=== PATIENT | female | born 1950 | race Caucasian/White ===

== ENCOUNTER → 2016-07-26 | Outpatient (CLI) | payer BC ==
[~2016-07-26] MED LIST: ATIVAN1 MG PO; CARAFATE1 G1 PO; EFFEXOR XR75 M2 PO; EFFEXOR50 MG PO; PRILOSEC40 MG PO; PROZAC20 MG PO; PROZAC40 MG PO; [UNRECOGNIZED DRUG - CODE] IM
== END | disposition home or self-care (01) ==
LOC: CARD 08:25
DX: R06.09 Other forms of dyspnea (principal)

== ENCOUNTER 2017-05-03 12:26 | Inpatient (IN) | payer MEDICARE, BC ==
[~2017-05-03] VITALS: Ht 170.2 cm; Wt 91.3 kg
[2017-05-03] VITALS (8 sets, daily range): BP systolic 101–157; BP diastolic 50–83
[2017-05-03 13:23] LABS: BASO # 0.1 10*3/uL (0.0-0.1); BASO % 0.7 % (0.0-1.0); EOS # 0.2 10*3/uL (0.0-0.4); EOS % 1.3 % (1.0-4.0); HEMATOCRIT 31.1 % (37.0-47.0); HEMOGLOBIN 9.5 g/dl (12.0-16.0); LYMPH # 3.4 10*3/uL (1.3-4.4); LYMPH % 29.4 % (27.0-41.0); MEAN CELL VOLUME 98.7 fl (81.0-99.0); MEAN CORPUSCULAR HGB 30.2 pg (27.0-31.0); MEAN CORPUSCULAR HGB CONC 30.5 g/dl (33.0-37.0); MEAN PLATELET VOLUME 9.9 fl (9.6-12.3); MONO % 8.5 % (3.0-9.0); NEUT # 6.9 10*3/uL (2.3-7.9); NEUT % 59.7 % (47.0-73.0); PLATELET COUNT AUTOMATED 275 10*3/uL (130-400); RED BLOOD COUNT 3.15 10*6/uL (4.10-5.10); RED CELL DISTRI WIDTH 15.1 % (0-14.5); WHITE BLOOD COUNT 11.6 10*3/uL (4.8-10.8)
[2017-05-03 13:38] LABS: ALBUMIN 3.4 gm/dl (3.1-4.5); ALKALINE PHOSPHATASE 165 U/L (45-117); BUN 15 mg/dl (7-24); CHLORIDE 107 mmol/L (98-107); CREATININE 0.95 mg/dL (0.55-1.02); LIPASE 226 U/L (73-393); POTASSIUM 3.8 mmol/L (3.5-5.1); SGOT/AST 37 IU/L (3-35); SGPT/ALT 28 U/L (12-78); SODIUM 139 mmol/L (136-145); TOTAL PROTEIN 7.1 gm/dL (6.4-8.2)
[2017-05-03 13:40] LABS: TROPONIN I < 0.015 ng/ml (<0.045)
[2017-05-03 13:49] LABS: ACT PARTIAL THROMBO TIME 27.7 SECONDS (20.8-31.5); INTERNATIONAL NORM RATIO 1.1 (2.0-3.5)
[2017-05-03 14:37] LABS: BILIRUBIN NEGATIVE (NEGATIVE); BLOOD NEGATIVE (NEGATIVE); CLARITY SL CLOUDY (CLEAR); COLOR YELLOW (YELLOW); GLUCOSE NEGATIVE (NEGATIVE); KETONE NEGATIVE (NEGATIVE); LEUKO ESTERASE 1+ (NEGATIVE); NITRITE NEGATIVE (NEGATIVE); PH 5.5 (5.0-9.0); UROBILINOGEN 0.2 E.U./dl (0.2-1.0)
[2017-05-03 14:59] LABS: BACTERIA 2+; EPITHELIAL CELLS 20-25
[2017-05-03 15:00] LABS: RBC 0-2 rbc/hpf (0-2); WBC 16-20 wbc/hpf (0-5)
[2017-05-03] MEDS ORDERED: ASPIRIN ADULT L81 M1 PO (16:01)
[2017-05-03] MEDS ORDERED: LIPITOR10 MG PO (16:02)
[2017-05-03] MEDS ORDERED: OMEPRAZOLE40 MG PO (16:02)
[2017-05-04] VITALS: BP 129/51
[2017-05-04 06:17] LABS: BASO # 0.1 10*3/uL (0.0-0.1); BASO % 0.8 % (0.0-1.0); EOS # 0.2 10*3/uL (0.0-0.4); EOS % 1.5 % (1.0-4.0); HEMATOCRIT 31.9 % (37.0-47.0); HEMOGLOBIN 9.9 g/dl (12.0-16.0); LYMPH # 3.2 10*3/uL (1.3-4.4); LYMPH % 27.6 % (27.0-41.0); MEAN CELL VOLUME 99.1 fl (81.0-99.0); MEAN CORPUSCULAR HGB 30.7 pg (27.0-31.0); MEAN PLATELET VOLUME 9.9 fl (9.6-12.3); MONO % 8.3 % (3.0-9.0); NEUT # 7.1 10*3/uL (2.3-7.9); NEUT % 61.3 % (47.0-73.0); PLATELET COUNT AUTOMATED 278 10*3/uL (130-400); RED BLOOD COUNT 3.22 10*6/uL (4.10-5.10); WHITE BLOOD COUNT 11.5 10*3/uL (4.8-10.8)
[2017-05-04 06:40] LABS: ALBUMIN 3.1 gm/dl (3.1-4.5); ALKALINE PHOSPHATASE 157 U/L (45-117); BUN 15 mg/dl (7-24); CHLORIDE 108 mmol/L (98-107); CHOLESTEROL 56 mg/dL (<200); CREATININE 0.97 mg/dL (0.55-1.02); FREE T4 0.98 ng/dl (0.76-1.46); HDL CHOLESTEROL 27 mg/dl (40-60); LDL CHOLESTEROL 14 mg/dL (9-159); PHOSPHOROUS 4.2 mg/dL (2.5-4.9); POTASSIUM 4.2 mmol/L (3.5-5.1); SGOT/AST 38 IU/L (3-35); SGPT/ALT 29 U/L (12-78); SODIUM 142 mmol/L (136-145); TRIGLYCERIDES 77 mg/dl (<150); VLDL CHOLESTEROL 15 mg/dL (6-40)
[2017-05-04 06:48] LABS: INTERNATIONAL NORM RATIO 1.1 (2.0-3.5)
[2017-05-04 07:29] LABS: VITAMIN D, 25-HYDROXY 20.7 ng/mL (30-100)
[2017-05-04 08:00] VITALS: BP 126/54
[2017-05-04 12:00] VITALS: BP 119/67
[2017-05-04 16:00] VITALS: BP 108/60
[2017-05-04] MEDS ORDERED: VITAMIN D31000 UNIT PO (16:58)
[2017-05-04] MEDS ORDERED: XARELTO20 M1 PO (17:17)
== END 2017-05-04 18:28 | disposition home or self-care (01) | DRG 205 ==
LOC: ED 12:26 → EDHOLD 15:11 → 4E 15:11
PROVIDERS: Emergency Medicine; Internal Medicine
DX: M94.0 Chondrocostal junction syndrome [Tietze] (principal); J18.9 Pneumonia, unspecified organism; E67.8 Other specified hyperalimentation; I48.91 Unspecified atrial fibrillation; E44.1 Mild protein-calorie malnutrition; J84.10 Pulmonary fibrosis, unspecified; K21.9 Gastro-esophageal reflux disease without esophagitis; F41.9 Anxiety disorder, unspecified; F32.9 Major depressive disorder, single episode, unspecified; R91.1 Solitary pulmonary nodule; D72.829 Elevated white blood cell count, unspecified; E55.9 Vitamin D deficiency, unspecified; K44.9 Diaphragmatic hernia without obstruction or gangrene; M51.34 Other intervertebral disc degeneration, thoracic region; I34.0 Nonrheumatic mitral (valve) insufficiency; D63.8 Anemia in other chronic diseases classified elsewhere; R74.0 Nonspecific elevation of levels of transaminase and lactic acid dehydrogenase [LDH]; Z82.49 Family history of ischemic heart disease and other diseases of the circulatory system; Z83.3 Family history of diabetes mellitus; Z80.7 Family history of other malignant neoplasms of lymphoid, hematopoietic and related tissues; Z80.0 Family history of malignant neoplasm of digestive organs; Z88.0 Allergy status to penicillin; Z91.041 Radiographic dye allergy status; Z79.899 Other long term (current) drug therapy; Z79.82 Long term (current) use of aspirin; Z90.49 Acquired absence of other specified parts of digestive tract; Z68.31 Body mass index [BMI] 31.0-31.9, adult; S22.000D Wedge compression fracture of unspecified thoracic vertebra, subsequent encounter for fracture with routine healing

== ENCOUNTER → 2017-05-11 | Outpatient (CLI) | payer MEDICARE, BC ==
[~2017-05-11] MED LIST changes: +ASPIRIN ADULT L81 M1 PO; +LIPITOR10 MG PO; +OMEPRAZOLE40 MG PO; +VITAMIN D31000 UNIT PO; +XARELTO20 M1 PO
--- NOTE | ~2017-05-11 | ST ---
[place], [place] EXERCISE STRESS TEST REPORT NAME: CHARISSA RILEY [facility] #: [id number] UNIT #: [id number] ROOM: DOCTOR: WEI STAFFORD MD BIRTHDATE: [birth year] DOS: 05/11/2017 LEXISCAN STRESS EKG. REFERRING PHYSICIAN: Dr. Moctezuma. INDICATION: Atrial fibrillation, shortness of breath, and chest pain. FINDINGS: The patient underwent a standard protocol Lexiscan stress EKG. The patient's baseline EKG was atrial fibrillation with a slow ventricular response with a heart rate of 46 beats per minute with blood pressure 118/60. The patient's peak heart rate was 77 with blood pressure 126/55. The patient had no acute changes of her ST segments. The patient had no arrhythmias beyond her baseline atrial fibrillation and no symptoms of chest pain or angina. SUMMARY OF FINDINGS: Unremarkable Lexiscan stress aside from her baseline atrial fibrillation. Please see separate report for perfusion scan imaging results. WEI STAFFORD MD CM:STRESS:EXERCISE STRESS TEST REPORT [id number] WEI STAFFORD MD
== END | disposition home or self-care (01) ==
LOC: CARD 03:08
DX: I48.91 Unspecified atrial fibrillation (principal); R06.02 Shortness of breath; R07.9 Chest pain, unspecified; R53.81 Other malaise

== ENCOUNTER 2017-08-23 08:02 | Emergency (ER) | payer MEDICARE, BC ==
[~2017-08-23] VITALS: Ht 170.1 cm; Wt 83.9 kg
--- NOTE | ~2017-08-23 | HM ---
[place], [place] HOLTER MONITOR REPORT NAME: CHARISSA RILEY [facility] #: [id number] UNIT #: [id number] ROOM: DOCTOR: LYNDSAY DE LUNA MD BIRTHDATE: [birth year] DOS: 08/23/2017 HOLTER REPORT INTERPRETATION: Underlying rhythm is atrial fibrillation with a controlled ventricular rate. Maximum heart rate 114, minimum heart rate 31, average heart rate is 54 beats per minute. There was one episode of ventricular triplets were noted. No significant pauses were noted. The patient's symptoms did not correlate with any significant EKG findings. Atrial fibrillation burden was 99.4%. Lyndsay De Luna MD CM:HOLTER:HOLTER MONITOR REPORT [id number] LYNDSAY DE LNUA MD
--- NOTE | ~2017-08-23 | EKG ---
[place], [place] ELECTROCARDIOGRAM REPORT NAME: CHARISSA RILEY UNIT #: [id number] ROOM: DOCTOR: ROSALIE HURLEY MD BIRTHDATE: [birth year] DOS: 08/23/2017 TIME: 0810 hours. FINDINGS: 1. Atrial fibrillation with a slow ventricular rate at 44 beats per minute. 2. An abnormal ECG. 3. No previous tracing is available for comparison. ROSALIE HURLEY MD CM:EKGRPT:ELECTROCARDIOGRAM REPORT [id number] ROSALIE HURLEY MD
[2017-08-23 08:21] LABS: HEMATOCRIT 34.6 % (37.0-47.0); HEMOGLOBIN 10.9 g/dl (12.0-16.0); MEAN CELL VOLUME 100.3 fl (81.0-99.0); MEAN CORPUSCULAR HGB 31.6 pg (27.0-31.0); MEAN CORPUSCULAR HGB CONC 31.5 g/dl (33.0-37.0); MEAN PLATELET VOLUME 10.3 fl (9.6-12.3); PLATELET COUNT AUTOMATED 343 10*3/uL (130-400); RED BLOOD COUNT 3.45 10*6/uL (4.10-5.10); RED CELL DISTRI WIDTH 14.4 % (0-14.5); WHITE BLOOD COUNT 16.2 10*3/uL (4.8-10.8)
[2017-08-23 08:36] LABS: BILIRUBIN NEGATIVE (NEGATIVE); BLOOD TRACE-LYSED (NEGATIVE); CLARITY CLEAR (CLEAR); COLOR STRAW (YELLOW); GLUCOSE NEGATIVE (NEGATIVE); KETONE NEGATIVE (NEGATIVE); LEUKO ESTERASE TRACE (NEGATIVE); NITRITE NEGATIVE (NEGATIVE); PH 5.5 (5.0-9.0); SPECIFIC GRAVITY <= 1.005 (1.005-1.030); UROBILINOGEN 0.2 E.U./dl (0.2-1.0)
[2017-08-23 08:43] LABS: BACTERIA TRACE; RBC 0-2 rbc/hpf (0-2)
[2017-08-23 08:46] LABS: TOTAL CELLS COUNTED 100 #CELLS
[2017-08-23 08:48] LABS: BURR CELLS FEW; PLATELET SUFFICIENCY NORMAL (NORMAL)
[2017-08-23 08:58] LABS: ALBUMIN 4.1 gm/dl (3.1-4.5); ALKALINE PHOSPHATASE 172 U/L (45-117); BUN 21 mg/dl (7-24); CHLORIDE 109 mmol/L (98-107); CREATININE 0.95 mg/dL (0.55-1.02); POTASSIUM 4.4 mmol/L (3.5-5.1); SGOT/AST 67 IU/L (3-35); SGPT/ALT 51 U/L (12-78); SODIUM 142 mmol/L (136-145); TOTAL PROTEIN 7.6 gm/dL (6.4-8.2)
[2017-08-23 09:00] LABS: TROPONIN I < 0.015 ng/ml (<0.045)
== END 2017-08-23 11:00 | disposition home or self-care (01) ==
LOC: ED 08:02
PROVIDERS: Emergency Medicine
DX: R00.1 Bradycardia, unspecified (principal); R11.0 Nausea; R20.0 Anesthesia of skin; R06.02 Shortness of breath; R53.1 Weakness; R07.89 Other chest pain; K21.9 Gastro-esophageal reflux disease without esophagitis; Z88.0 Allergy status to penicillin; Z79.899 Other long term (current) drug therapy

== ENCOUNTER → 2017-11-22 | Outpatient (CLI) | payer MEDICARE, BC ==
--- NOTE | ~2017-11-22 | CON ---
[place], [place] REPORT OF CONSULTATION [facility] [id number] UNIT #: [id number] ROOM: DOCTOR: HANNAH MURRAY MD BIRTHDATE: [birth year] DOS: 11/22/2017 HISTORY OF PRESENT ILLNESS: The patient came to our [facility] Cardiology office today ahead of schedule. She is a 66-year-old woman whom I first evaluated in July 2017 for a history of atrial fibrillation with slow ventricular response and sick sinus syndrome. She seemed stable when I saw her, but became more dyspneic and fatigued shortly thereafter and was seen in the Emergency Room on 08/30/2017 with a slow ventricular response to her atrial fibrillation. Dr. Prakash Willingham inserted a pacemaker 08/31/2017. Plans were that she should be anticoagulated and then undergo FELIPE-guided cardioversion. This occurred on 10/24/2017. Despite the fact that her echocardiography in the past had shown moderate mitral insufficiency, the FELIPE on 10/24/2017 did show severe left atrial enlargement and severe mitral insufficiency along with a low normal left ventricular ejection fraction. The patient was referred to the valve clinic. Dr. Sumeet Mendieta did a cardiac catheterization via a right radial approach 11/16/2017 and found no significant disease. The patient was referred to Dr. Shelton Quinn for consideration of mitral valve repair or replacement. The patient has that appointment next week, but she is feeling poorly. She states that she gets dyspneic with minor exertion and cannot climb stairs anymore. She has noticed that her weight is going up and that her ankles have been a little bit more swollen lately. Her medical history includes (you could bring forward the list from 08/07/2017) to that hospitalization 08/30/2017 with: 1. Atrial fibrillation and a slow ventricular response. 2. Placement of a DDD pacemaker ([employer] Accolade MRI conditional device, model #L331) by Dr. Prakash Willingham, 08/31/2017. 3. FELIPE-guided cardioversion 10/24/2017 demonstrated left ventricular function to be at the lower limits of normal with severe left atrial enlargement and severe mitral insufficiency. 4. Cardiac catheterization via radial approach as part of preoperative assessment prior to valve surgery, Dr. Sumeet Mendieta, 11/16/2017, 20% LAD stenosis and 20% RCA stenosis, but no other significant vascular disease. 5. Worsening dyspnea prompting office visit ahead of schedule, 11/22/2018. REVIEW OF SYSTEMS: (____ you could bring forward the review of systems from 08/07/2017). CARDIOVASCULAR: The patient denies chest pain, but does have dyspnea with minor exertion. PHYSICAL EXAMINATION: GENERAL: She is a well-nourished white female, awake, alert and oriented. VITAL SIGNS: Pulse is 77 and regular. She is in a paced rhythm. Blood pressure is 124/70. She weighs 194 pounds, which is 5 pounds more than she weighed in July 2017, body mass index is 30.4. HEENT: Normocephalic, atraumatic. Extraocular muscles are intact. Sclerae are clear. Pupils equal, round and react to light. Oral mucosa is moist. Tongue is midline. NECK: Supple. She does have mild jugular distention with hepatojugular reflux [place], [place] REPORT OF CONSULTATION NAME: CHARISSA RILEY UNIT #: [id number] ROOM: DOCTOR: HANNAH MURRAY MD BIRTHDATE: [birth year] when sitting at a 45 degree angle. Carotids are full without bruits. There are no neck or supraclavicular masses and no thyromegaly. LUNGS: Respirations are unlabored at rest. She does have a few crackles at the bases bilaterally. HEART: Has a regular rhythm without gallops or obvious murmurs. The PMI could not be felt. She had no precordial heave, lift or thrill. ABDOMEN: Soft and normally active without masses, organomegaly, bruits or fluid wave. EXTREMITIES: Showed trace edema bilaterally. Peripheral pulses are easily palpated. I reviewed her electrocardiogram. It shows 100% ventricular pacing at a rate of 77. There does appear to be underlying sinus rhythm with atrial sensing and ventricular pacing, although it is very difficult to prove this on the current tracing. She does have a conduction system disorder, which was treated by placement of a permanent DDD pacemaker. Her rate is now acceptable. She does, however, also have significant valvular heart disease with severe mitral insufficiency and moderate tricuspid insufficiency. Plans are being made for her to undergo valve repair or replacement. In the interim, however, she is not on any diuretic or unloading therapy and I think that her hemodynamics are deteriorating, so medical therapy at this point is indicated. I will be starting her on a low dose of furosemide as well as losartan to act as an unloading agent. I specifically told the patient and her that these agents will not cure or change the course of her valvular heart disease, but may buy us some time until the valve can be repaired or replaced. She will have laboratory studies done next week to make sure that she is tolerating the furosemide and angiotensin receptor raul. I did, however, get blood work today, her hemoglobin is 10.2 with a hematocrit of 32.8. She has 19,900 white cells and 282,000 platelets. Her sodium is 140, potassium 4.0, chloride 106, CO2 of 26, BUN 15, and creatinine 0.95. Hopefully, the combination of furosemide and losartan will not result in any significant abnormality of renal functions. She is to see Dr. Shelton Quinn next week and presumably definitive surgery will be scheduled at that time. I thank Dr. Jung for asking our advice regarding her care. [place], [place] REPORT OF CONSULTATION NAME: CHARISSA RILEY UNIT #: [id number] ROOM: DOCTOR: HANNAH MURRAY MD BIRTHDATE: [birth year] HANNAH MURRAY MD CM:CONSTR:REPORT OF CONSULTATION 42 11/23/17 042 yayo JUNG MD
[2017-11-22 09:29] LABS: BASO # 0.1 10*3/uL (0.0-0.1); BASO % 0.5 % (0.0-1.0); EOS # 0.1 10*3/uL (0.0-0.4); EOS % 0.7 % (1.0-4.0); HEMATOCRIT 32.8 % (37.0-47.0); HEMOGLOBIN 10.2 g/dl (12.0-16.0); LYMPH # 3.5 10*3/uL (1.3-4.4); LYMPH % 17.8 % (27.0-41.0); MEAN CELL VOLUME 101.9 fl (81.0-99.0); MEAN CORPUSCULAR HGB 31.7 pg (27.0-31.0); MEAN CORPUSCULAR HGB CONC 31.1 g/dl (33.0-37.0); MONO # 1.4 10*3/uL (0.1-1.0); MONO % 6.8 % (3.0-9.0); NEUT # 14.7 10*3/uL (2.3-7.9); NEUT % 73.6 % (47.0-73.0); PLATELET COUNT AUTOMATED 282 10*3/uL (130-400); RED BLOOD COUNT 3.22 10*6/uL (4.10-5.10); RED CELL DISTRI WIDTH 13.5 % (0-14.5); WHITE BLOOD COUNT 19.9 10*3/uL (4.8-10.8)
[2017-11-22 09:58] LABS: BUN 15 mg/dl (7-24); CHLORIDE 106 mmol/L (98-107); CREATININE 0.95 mg/dL (0.55-1.02); SODIUM 140 mmol/L (136-145)
== END | disposition home or self-care (01) ==
LOC: LAB 08:54
PROVIDERS: Internal Medicine Cardiovascular Disease
DX: I49.5 Sick sinus syndrome (principal); R55 Syncope and collapse; R06.09 Other forms of dyspnea

== ENCOUNTER → 2017-11-26 | Outpatient (CLI) | payer MEDICARE, BC ==
[2017-11-26 13:30] LABS: BUN 17 mg/dl (7-24); CHLORIDE 109 mmol/L (98-107); CREATININE 1.09 mg/dL (0.55-1.02); SODIUM 142 mmol/L (136-145)
[2017-11-26 13:35] LABS: POTASSIUM 4.3 mmol/L (3.5-5.1)
== END | disposition home or self-care (01) ==
LOC: LAB 12:48
PROVIDERS: Internal Medicine Cardiovascular Disease
DX: I50.33 Acute on chronic diastolic (congestive) heart failure (principal); I48.1 Persistent atrial fibrillation; I49.5 Sick sinus syndrome; I34.0 Nonrheumatic mitral (valve) insufficiency; D64.9 Anemia, unspecified

== ENCOUNTER → 2018-10-29 | Outpatient (CLI) | payer MEDICARE, BC | END | disposition home or self-care (01) | LOC: RAD 10:43 | DX: Z13.820 Encounter for screening for osteoporosis (principal); Z78.0 Asymptomatic menopausal state ==

== ENCOUNTER → 2019-01-01 | Outpatient (CLI) | payer MEDICARE, BC | END | disposition home or self-care (01) | LOC: RAD 14:43 | DX: R06.02 Shortness of breath (principal); R06.2 Wheezing ==

== ENCOUNTER → 2019-03-24 | Outpatient (CLI) | payer MEDICARE, BC | END | disposition home or self-care (01) | LOC: CARD 08:30 | DX: I08.1 Rheumatic disorders of both mitral and tricuspid valves (principal); R06.09 Other forms of dyspnea ==

== ENCOUNTER → 2019-08-27 | Outpatient (CLI) | payer MEDICARE, BC ==
[~2019-08-27] MED LIST changes: +LEVOTHYROXINE50 MCG PO; +PREVACID30 M2 PO
== END | disposition home or self-care (01) ==
LOC: COVID19 00:10
DX: Z01.818 Encounter for other preprocedural examination (principal); Z11.59 Encounter for screening for other viral diseases

== ENCOUNTER → 2019-09-01 | Day surgery (SDC) | payer MEDICARE, BC ==
[~2019-09-01] VITALS: Ht 170.1 cm; Wt 83.5 kg
[2019-09-01 06:44] VITALS: BP 140/52
[2019-09-01 08:05] VITALS: BP 102/66
[2019-09-01 08:20] VITALS: BP 113/62
[2019-09-01 08:35] VITALS: BP 121/64
== END | disposition home or self-care (01) ==
LOC: SDC 08-28 08:00
DX: K92.1 Melena (principal); D64.9 Anemia, unspecified; K29.50 Unspecified chronic gastritis without bleeding; I48.91 Unspecified atrial fibrillation; Z88.0 Allergy status to penicillin; Z88.8 Allergy status to other drugs, medicaments and biological substances; Z83.3 Family history of diabetes mellitus

== ENCOUNTER 2019-11-25 23:35 | Emergency (ER) | payer MEDICARE, BC ==
[~2019-11-25] VITALS: Ht 170.1 cm; Wt 68.0 kg
== END 2019-11-26 02:50 | disposition home or self-care (01) ==
LOC: ED 23:35
DX: R79.89 Other specified abnormal findings of blood chemistry (principal); Z88.0 Allergy status to penicillin; Z91.041 Radiographic dye allergy status; Z79.899 Other long term (current) drug therapy

== ENCOUNTER → 2019-11-25 | Outpatient (CLI) | payer MEDICARE, BC | END | disposition home or self-care (01) | LOC: RAD 10:15 | PROVIDERS: ATTEND Family Medicine | DX: R05 Cough (principal); I50.9 Heart failure, unspecified ==

== ENCOUNTER 2020-03-17 10:59 | Inpatient (IN) | payer MEDICARE, BC ==
[~2020-03-17] VITALS: Ht 170.2 cm; Wt 71.4 kg
[2020-03-17] VITALS (7 sets, daily range): BP systolic 107–148; BP diastolic 56–72
[~2020-03-17 10:59] MED LIST changes: +EFFEXOR XR37.5 M1 PO; -EFFEXOR XR75 M2 PO
[2020-03-17 11:28] LABS: BASO % 0.1 % (0.0-1.0); EOS % 0.1 % (1.0-4.0); HEMATOCRIT 29.2 % (37.0-47.0); LYMPH # 1.5 10*3/uL (1.3-4.4); LYMPH % 10.6 % (27.0-41.0); MEAN CORPUSCULAR HGB 30.8 pg (27.0-31.0); MEAN CORPUSCULAR HGB CONC 34.6 g/dl (33.0-37.0); MEAN PLATELET VOLUME 10.7 fl (9.6-12.3); MONO # 0.9 10*3/uL (0.1-1.0); MONO % 6.2 % (3.0-9.0); NEUT # 11.9 10*3/uL (2.3-7.9); NEUT % 82.4 % (47.0-73.0); PLATELET COUNT AUTOMATED 77 10*3/uL (130-400); RED BLOOD COUNT 3.28 10*6/uL (4.10-5.10); RED CELL DISTRI WIDTH 15.9 % (0-14.5); WHITE BLOOD COUNT 14.5 10*3/uL (4.8-10.8)
[2020-03-17 11:39] LABS: ACT PARTIAL THROMBO TIME 36.7 SECONDS (20.0-32.1); INTERNATIONAL NORM RATIO 1.3 (2.0-3.5)
[2020-03-17 11:40] LABS: ALBUMIN 1.9 gm/dl (3.1-4.5); CREATININE 1.95 mg/dL (0.55-1.02); POTASSIUM 3.7 mmol/L (3.5-5.1); TOTAL PROTEIN 5.2 gm/dL (6.4-8.2); TROPONIN I 0.017 ng/ml (<0.045)
[2020-03-17 12:52] LABS: BILIRUBIN Negative (Negative); BLOOD 3+ (Negative); CLARITY Cloudy (Clear); COLOR Dark Yellow (Yellow); GLUCOSE Negative (Negative); KETONE Trace (Negative); LEUKO ESTERASE 2+ (Negative); NITRITE Negative (Negative); UROBILINOGEN 0.2 E.U./dl (0.0-1.0)
[2020-03-17 13:02] LABS: WBC TNTC wbc/hpf (0-5)
[2020-03-17 13:03] LABS: BACTERIA TRACE
[2020-03-17] MEDS ORDERED: TORSEMIDE20 MG PO (15:41)
[2020-03-17] MEDS ORDERED: ISORDIL10 M1 PO (18:26)
[2020-03-17] MEDS ORDERED: ALDACTONE25 MG PO (18:29)
[2020-03-17] MEDS ORDERED: FUROSEMIDE20 M1 PO (18:30)
[2020-03-17] MEDS ORDERED: APRESOLINE10 MG PO (18:31)
[2020-03-18] VITALS: BP 91/65
[2020-03-18 07:08] LABS: BASO % 0.3 % (0.0-1.0); EOS # 0.1 10*3/uL (0.0-0.4); EOS % 0.7 % (1.0-4.0); HEMATOCRIT 26.9 % (37.0-47.0); LYMPH # 2.4 10*3/uL (1.3-4.4); LYMPH % 18.2 % (27.0-41.0); MEAN CORPUSCULAR HGB 31.1 pg (27.0-31.0); MEAN CORPUSCULAR HGB CONC 34.6 g/dl (33.0-37.0); MEAN PLATELET VOLUME 10.9 fl (9.6-12.3); MONO # 0.9 10*3/uL (0.1-1.0); NEUT # 9.7 10*3/uL (2.3-7.9); NEUT % 73.3 % (47.0-73.0); NUCLEATED RED BLOOD CELL 0.2 % (0.0-0.0); PLATELET COUNT AUTOMATED 63 10*3/uL (130-400); RED BLOOD COUNT 2.99 10*6/uL (4.10-5.10); RED CELL DISTRI WIDTH 15.8 % (0-14.5); WHITE BLOOD COUNT 13.3 10*3/uL (4.8-10.8)
[2020-03-18 07:25] LABS: ALBUMIN 1.7 gm/dl (3.1-4.5); BILIRUBIN, DIRECT 0.6 mg/dL (0.0-0.2); CREATININE 1.62 mg/dL (0.55-1.02); POTASSIUM 3.5 mmol/L (3.5-5.1); TOTAL PROTEIN 4.5 gm/dL (6.4-8.2)
[2020-03-18 07:26] LABS: FREE T4 1.29 ng/dl (0.76-1.46)
[2020-03-18 07:31] LABS: THYROID STIM HORMONE (HS) 15.4 uIU/ml (0.358-4.75)
[2020-03-18 08:00] VITALS: BP 102/68
[2020-03-18 08:14] LABS: VITAMIN D, 25-HYDROXY 36.9 ng/mL (30-100)
[2020-03-18] MEDS ORDERED: ELIQUIS5 M1 PO (09:47)
[2020-03-18] MEDS ORDERED: POTASSIUM CHLO20 ME3 PO (09:49)
[2020-03-18 11:58] LABS: BILIRUBIN Negative (Negative); BLOOD 1+ (Negative); CLARITY Clear (Clear); COLOR Yellow (Yellow); GLUCOSE Negative (Negative); KETONE Trace (Negative); LEUKO ESTERASE Trace (Negative); NITRITE Negative (Negative); UROBILINOGEN 0.2 E.U./dl (0.0-1.0)
[2020-03-18 12:00] VITALS: BP 126/75
[2020-03-18 12:53] LABS: RBC 21-30 rbc/hpf (0-2)
[2020-03-18 12:54] LABS: BACTERIA 2+; EPITHELIAL CELLS 16-20
[2020-03-18 16:00] VITALS: BP 133/61
[2020-03-18 20:00] VITALS: BP 106/67
[2020-03-19] VITALS: BP 112/51
[2020-03-19 08:00] VITALS: BP 133/71
== END 2020-03-19 08:10 | disposition short-term general hospital (02) | DRG 871 ==
LOC: ED 10:59 → 5E 12:17 → EDHOLD 12:17 → 5E 14:00
PROVIDERS: Emergency Medicine; Registered Nurse; ADMIT Internal Medicine; ATTEND Internal Medicine
DX: A41.9 Sepsis, unspecified organism (principal); G93.41 Metabolic encephalopathy; E43 Unspecified severe protein-calorie malnutrition; N30.00 Acute cystitis without hematuria; I48.19 Other persistent atrial fibrillation; S21.111A Laceration without foreign body of right front wall of thorax without penetration into thoracic cavity, initial encounter; R18.8 Other ascites; K57.20 Diverticulitis of large intestine with perforation and abscess without bleeding; N76.2 Acute vulvitis; R65.20 Severe sepsis without septic shock; E03.9 Hypothyroidism, unspecified; I50.9 Heart failure, unspecified; K74.60 Unspecified cirrhosis of liver; Z20.822 Contact with and (suspected) exposure to COVID-19; F32.9 Major depressive disorder, single episode, unspecified; I11.0 Hypertensive heart disease with heart failure; M51.37 Other intervertebral disc degeneration, lumbosacral region; S51.012A Laceration without foreign body of left elbow, initial encounter; X58.XXXA Exposure to other specified factors, initial encounter; Y93.89 Activity, other specified; Y92.89 Other specified places as the place of occurrence of the external cause; Y99.8 Other external cause status; Z95.2 Presence of prosthetic heart valve; Z88.0 Allergy status to penicillin; Z91.041 Radiographic dye allergy status; Z90.49 Acquired absence of other specified parts of digestive tract; Z95.0 Presence of cardiac pacemaker; Z83.3 Family history of diabetes mellitus; Z82.49 Family history of ischemic heart disease and other diseases of the circulatory system; Z80.0 Family history of malignant neoplasm of digestive organs; Z68.24 Body mass index [BMI] 24.0-24.9, adult; Z79.899 Other long term (current) drug therapy